=== PATIENT | female | born 1945 | race Caucasian/White ===

== ENCOUNTER 2020-02-20 23:40 | Emergency (ER) | payer MEDICARE ==
[~2020-02-20] VITALS: Ht 152.4 cm; Wt 99.8 kg
[2020-02-21] MEDS ORDERED: NORCO 5-325 TA1 EACH PO (01:13)
== END 2020-02-21 02:00 | disposition home or self-care (01) ==
LOC: ED 23:40
DX: S42.211A Unspecified displaced fracture of surgical neck of right humerus, initial encounter for closed fracture (principal); S09.90XA Unspecified injury of head, initial encounter; Z88.0 Allergy status to penicillin; W01.0XXA Fall on same level from slipping, tripping and stumbling without subsequent striking against object, initial encounter; Y93.89 Activity, other specified; Y92.89 Other specified places as the place of occurrence of the external cause; Y99.8 Other external cause status

== ENCOUNTER → 2020-03-11 | Outpatient (CLI) | payer MEDICARE ==
[~2020-03-11] MED LIST: NORCO 5-325 TA1 EACH PO
== END | disposition home or self-care (01) ==
LOC: ORTHO 03-10 08:51
PROVIDERS: ATTEND Orthopaedic Surgery
DX: S42.231D 3-part fracture of surgical neck of right humerus, subsequent encounter for fracture with routine healing (principal); X58.XXXD Exposure to other specified factors, subsequent encounter

== ENCOUNTER → 2020-04-02 | Outpatient (CLI) | payer MEDICARE, OTHER | END | disposition home or self-care (01) | LOC: ORTHO 02:34 | PROVIDERS: ATTEND Orthopaedic Surgery | DX: S42.231D 3-part fracture of surgical neck of right humerus, subsequent encounter for fracture with routine healing (principal); X58.XXXD Exposure to other specified factors, subsequent encounter ==

== ENCOUNTER → 2020-08-15 | Outpatient (CLI) | payer MEDICARE | END | disposition home or self-care (01) | LOC: ORTHO 01:39 | PROVIDERS: ATTEND Orthopaedic Surgery | DX: M19.041 Primary osteoarthritis, right hand (principal); M77.8 Other enthesopathies, not elsewhere classified ==

== ENCOUNTER 2024-09-26 02:05 | Emergency (ER) | payer MEDICARE ==
[~2024-09-26] VITALS: Wt 97.5 kg
[2024-09-26 02:33] LABS: BASO # 0.0 10*3/uL (0.0-0.1); BASO % 0.2 % (0.0-1.0); EOS # 0.1 10*3/uL (0.0-0.4); EOS % 1.6 % (1.0-4.0); MEAN CELL VOLUME 96.4 fl (81.0-99.0); MEAN CORPUSCULAR HGB 31.3 pg (27.0-31.0); MEAN PLATELET VOLUME 9.8 fl (9.6-12.3); MONO # 0.7 10*3/uL (0.1-1.0); MONO % 7.9 % (3.0-9.0); NEUT # 5.8 10*3/uL (2.3-7.9); NEUT % 69.7 % (47.0-73.0); NUCLEATED RED BLOOD CELL 0.0 % (0.0-0.0); NUCLEATED RED BLOOD CELL 0.0 10*3/uL (0.0-0.0); PLATELET COUNT AUTOMATED 200 10*3/uL (130-400); RED CELL DISTRI WIDTH 13.0 % (0-14.5)
[2024-09-26 02:54] LABS: BUN 17 mg/dl (9-23); SGPT/ALT 19 U/L (5-49)
[2024-09-26] MEDS ORDERED: Ondansetron Hydrochloride 4 MG TAB SL ONE (04:00)
[2024-10-02] MEDS ORDERED: HYDROCODONE-AC1 EACH PO (02:06)
[2024-10-02] MEDS ORDERED: MIRALAX POWDER17 G1 PO (02:12)
[2024-10-02] MEDS ORDERED: CELECOXIB100 M1 PO (07:54)
[2024-10-02] MEDS ORDERED: LOSARTAN POTASS25 M1 PO (07:54)
[2024-10-02] MEDS ORDERED: OXYBUTYNIN CHLOR5 M1 PO (07:54)
[2024-10-02] MEDS ORDERED: ALDACTONE25 MG PO (07:54)
[2024-10-02] MEDS ORDERED: VITAMIN D-40010 MCG PO (07:54)
[2024-10-02] MEDS ORDERED: DIAZEPAM2 MG PO (07:55)
[2024-10-02] MEDS ORDERED: VITAMIN D2 (ERGO) 1. PO (16:58)
== END 2024-09-26 04:51 | disposition home or self-care (01) ==
LOC: ED 02:05
PROVIDERS: Internal Medicine
DX: K82.8 Other specified diseases of gallbladder (principal); I12.9 Hypertensive chronic kidney disease with stage 1 through stage 4 chronic kidney disease, or unspecified chronic kidney disease; N18.31 Chronic kidney disease, stage 3a; D63.1 Anemia in chronic kidney disease; R74.01 Elevation of levels of liver transaminase levels; Z79.899 Other long term (current) drug therapy; Z88.0 Allergy status to penicillin; Z90.710 Acquired absence of both cervix and uterus; Z98.890 Other specified postprocedural states